=== PATIENT | female | born 1990 | race Caucasian/White ===

== ENCOUNTER 2023-10-03 13:29 | Outpatient (AMB) | payer OTHER, SELFPAY ==
--- NOTE | 2023-10-03 13:31 | A.OFFVIS_ITS ---
Intake VS Expanded 10/03/23 13:42 BP 133/61 Blood Pressure Location Rt brachial Blood Pressure Position Sitting Pulse 100 Pulse Source Pulse Oximeter Temp 97.9 F Temperature Source Temporal Artery Scan Pulse Oximetry 96 Height 5 ft 5.5 in Weight 179 lb BMI 29.3 Body Fat % 31.4 Body Fat Mass 56.2 Fat Free Mass 122.6 Visceral Fat Rating 5.0 Body Water % 49.2 Body Water Mass 88.0 Muscle Mass/Score 116.4 Basal Metabolic Rate/Score 1,672 Intake Visit Reasons: (OV) PO LSG 11/24/19 Allergies ENVIRONMENTAL Allergy (Severe, Uncoded 07/21/20 19:43) RANDOM ANAPHYLAXIS TO UNKNOWN ENVIRONMENTAL CAUSES NKA Allergy (Mild, Uncoded 10/03/23 13:37) Sneezing Medication List - Last Reconciled 10/03/23 by KERON Perdomo No Known Home Meds HPI HPI Comments History of Present Illness Details This?is a?33?yo female who is s/p LSG 11/24/2019. Presents for weight management followup, has not been seen in several years. No complaints of nausea, emesis, abdominal pain or reflux, or constipation. Reports a since surgery, was able to get back on track since then but wants to continue to lose. 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 GERD: resolved MALGORZATA:? never DM:? never HTN:? never Hyperlipidemia:? never? Post op complications:? none PFSH Surgical History (Updated 10/03/23 @ 13:47 by KERON Perdomo) Hx of section History of sleeve gastrectomy History of repair of ACL Family History Father No problems noted. Mother No problems noted. Daughter No problems noted. Brother No problems noted. Brother No problems noted. Brother No problems noted. Sister No problems noted. Sister No problems noted. Sister No problems noted. Sister No problems noted. Brother No problems noted. Social History (Updated 09/20/20 @ 14:22 by Thu Henriquez MA) Alcohol intake: current Alcohol intake frequency: holidays/special occasions only Patient Tobacco Use Status: Current everyday Tobacco user Tobacco use type: Cigarette Cigarettes Per Day: 10 Physical Exam Const General: cooperative, comfortable and no acute distress Orientation/consciousness: patient oriented x3 GI Other: soft, nontender, nondistended, no hernia, no masses Neuro General: patient oriented x3 Assessment & Plan Assessment & Plan (1) Overweight: Code(s): E66.3 - Overweight (2) Status post sleeve gastrectomy: Code(s): Z90.3 - Acquired absence of stomach [part of] Plan Recommended the following plan: 2 Isopure Infusions shakes, 1 scoop in 8oz water 1 ZP or Fitcrunch bar 1 meal of 4 forks meat, 4 forks salad/veg Gave healthy foods handout, can incorporate fruit or veg as a snack instead of crackers/pretzels Recommended resuming formal exercise, start with 15-20 min per day, try to increase. Labs ordered. RTC 6 weeks. Texted meal plan to pt and encouraged her to reach out between appts with any questions or concerns. Patient is overweight and is not considered stable at this time. I spent a total of 30 minutes reviewing/updating records, examining the patient and counseling the patient on weight management as detailed above. Orders: Orders Hemoglobin A1c Today Z90.3 - Acquired absence of stomach [part of] Complete Blood Count Auto Diff Today Z90.3 - Acquired absence of stomach [part of] Comprehensive Met. Panel Today Z90.3 - Acquired absence of stomach [part of] Zinc Today Z90.3 - Acquired absence of stomach [part of] C Reactive Protein Today Z90.3 - Acquired absence of stomach [part of] Vitamin B1 Today Z90.3 - Acquired absence of stomach [part of] Vitamin A Today Z90.3 - Acquired absence of stomach [part of] TSH reflex Free T4 Today Z90.3 - Acquired absence of stomach [part of] Ferritin Today Z90.3 - Acquired absence of stomach [part of] Insulin Today Z90.3 - Acquired absence of stomach [part of] Lipid Panel Today Z90.3 - Acquired absence of stomach [part of] IRON PROFILE Today Z90.3 - Acquired absence of stomach [part of] Vitamin B12 and Folate Today Z90.3 - Acquired absence of stomach [part of] Vitamin D 25-OH Total Today Z90.3 - Acquired absence of stomach [part of] Coding Level of Care Code Est Pt Level 4 (28943) Diagnoses Overweight E66.3 Status post sleeve gastrectomy Z90.3
[2023-10-03 13:42] VITALS: BP 133/61; PULSE 100; TEMP 36.6; O2SAT 96; BMI 29.3
== END 2023-10-03 13:59 | disposition home or self-care (01) ==
PROVIDERS: PCP Internal Medicine; Visit Provider Physician Assistant Surgical
DX: E66.3 Overweight (principal); Z68.29 Body mass index [BMI] 29.0-29.9, adult; Z90.3 Acquired absence of stomach [part of]; Z98.84 Bariatric surgery status
CPT/HCPCS: 99214

== ENCOUNTER → 2023-10-03 13:29 | Outpatient (BNVA) | payer OTHER, SELFPAY | PROVIDERS: PCP Internal Medicine; Visit Provider Physician Assistant Surgical | DX: E66.3 Overweight (principal); Z68.29 Body mass index [BMI] 29.0-29.9, adult; Z90.3 Acquired absence of stomach [part of] | CPT/HCPCS: 99212 ==

== ENCOUNTER 2023-11-13 09:47 | Outpatient (REF) | payer OTHER, SELFPAY ==
[2023-11-13 10:02] LABS: MANUAL DIFF FLAG NO
[2023-11-13 10:52] LABS: Basophils Absolute Auto 0.1 X10*3/uL (0.0-0.2); Basophils Percent Auto 0.6 % (0-2); Eosinophils Absolute Auto 0.1 X10*3/uL (0.0-0.4); Eosinophils Percent Auto 0.9 % (0-4); Hematocrit 41.2 % (37.0-47.0); Hemoglobin 13.2 g/dl (12.0-16.0); Imm Gran Abs Auto 0.04 X10*3/uL (0.00-0.03); Imm Gran Pct Auto 0.5 % (0.0-0.4); Lymphocytes Absolute Auto 2.2 X10*3/uL (1.2-4.9); Lymphocytes Percent Auto 25.1 % (20-40); Mean Corpuscular Hemoglobin 29.7 pg (27.0-33.0); Mean Corpuscular Volume 92.6 fL (80.0-98.0); Mean Platelet Volume 13.2 fL (9.4-12.3); Monocytes Absolute Auto 0.4 X10*3/uL (0.1-1.2); Monocytes Percent Auto 4.9 % (2-11); Platelet Count 159 X10*3/uL (160-400); Red Blood Count 4.45 X10*6/uL (4.20-5.50); Red Cell Distribution Width 13.2 % (11.0-16.0); White Blood Count 8.8 X10*3/uL (4.8-10.8)
[2023-11-13 11:09] LABS: Estimated Average Glucose 103 mg/dL; Hemoglobin A1c % 5.2 % (<6.0)
[2023-11-13 11:27] LABS: Alanine Aminotransferase 8 U/L (0-31); Albumin Level 4.5 g/dL (3.5-5.0); Alkaline Phosphatase 39 U/L (39-117); Anion Gap 11 (12-20); Aspartate Amino Transferase 12 U/L (5-31); Bilirubin Total 0.3 mg/dL (0.0-1.0); Blood Urea Nitrogen 7 mg/dL (9-16); C Reactive Protein 0.15 mg/dL (< or = 0.50); Calcium 9.3 mg/dL (8.4-10.2); Carbon Dioxide 26 mmol/L (22-29); Chloride 110 mmol/L (96-108); Cholesterol 191 mg/dL (<200); Estimated Glomerular Filt Rate > 60; Glucose Random 94 mg/dL (60-115); HDL Cholesterol 51 mg/dL (>40); Iron 48 mcg/dL (30-160); LDL Cholesterol Calculated 125 mg/dL (<100); Percent Iron Saturation 17 % (15-50); Potassium 4.9 mmol/L (3.3-5.1); Sodium 142 mmol/L (135-145); Total Iron Binding Capacity 289 mcg/dL (228-428); Total Protein 7.6 g/dL (6.5-8.0); Triglycerides 76 mg/dL (<150); Unsaturated Iron Binding 241 ug/dL
[2023-11-13 11:45] LABS: Ferritin 17 ng/mL (10-122); Insulin 11 uU/mL (2-29); TSH reflex Free T4 0.51 uIU/mL (0.32-4.0); Vitamin D 25-OH Total 12.5 ng/mL (>30)
[2023-11-13 12:02] LABS: Folate 8.5 ng/mL (> or = 4.0); Vitamin B12 458 pg/mL (200-900)
[2023-11-16 02:48] LABS: Zinc 71 mcg/dL (60-130)
[2023-11-18 05:29] LABS: Vitamin A 49 mcg/dL (38-98)
[2023-11-18 13:49] LABS: Vitamin B1 6 nmol/L (8-30)
== END 2023-11-13 09:48 | disposition home or self-care (01) ==
LOC: HO.LAB 09:47
PROVIDERS: Visit Provider Physician Assistant Surgical
DX: Z90.3 Acquired absence of stomach [part of] (principal)
CPT/HCPCS: 36415; 80053; 80061; 82306; 82607; 82728; 82746; 83036; 83525; 83540; 84425; 84443; 84590; 84630; 85025; 86140

== ENCOUNTER 2023-11-14 11:48 | Outpatient (AMB) | payer OTHER, SELFPAY ==
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
== END 2023-11-14 13:58 | disposition home or self-care (01) ==
LOC: HO.HBS 11:48
PROVIDERS: PCP Internal Medicine; Visit Provider Physician Assistant Surgical
DX: E66.3 Overweight (principal); Z90.3 Acquired absence of stomach [part of]
CPT/HCPCS: 99214

== ENCOUNTER → 2023-11-14 11:48 | Outpatient (BNVA) | payer OTHER, SELFPAY | PROVIDERS: PCP Internal Medicine; Visit Provider Physician Assistant Surgical ==